=== PATIENT | female | born 1980 | race Caucasian/White ===

== ENCOUNTER → 2023-12-07 15:49 | Outpatient (REF) | payer BC, SELFPAY | LOC: RAD 15:49 | PROVIDERS: ATTENDING PHYSICIAN Physician Assistant Medical | DX: R10.9 Unspecified abdominal pain (principal); Z90.710 Acquired absence of both cervix and uterus; N99.89 Other postprocedural complications and disorders of genitourinary system | CPT/HCPCS: 74177; Q9967 ==

== ENCOUNTER → 2024-03-06 10:57 | Outpatient (REF) | payer BC, SELFPAY | LOC: RAD 10:57 | PROVIDERS: ATTENDING PHYSICIAN Physician Assistant Medical | DX: E01.1 Iodine-deficiency related multinodular (endemic) goiter (principal); R22.1 Localized swelling, mass and lump, neck; E03.9 Hypothyroidism, unspecified; Z85.42 Personal history of malignant neoplasm of other parts of uterus | CPT/HCPCS: 70491; Q9967 ==

== ENCOUNTER 2024-03-06 15:36 | Emergency (ER) | payer BC, SELFPAY ==
[2024-03-06 15:46] VITALS: BP 171/99
[2024-03-06 16:34] LABS: % Basophils 1.4 % (0-2); % Eosinophils 3.1 % (0-6); % Immature Granulocytes 0.3 % (0-0.5); % Monocytes 8.7 % (1.7-9.3); % Neutrophils 50.5 % (42.2-75.2); Absolute Basophils 0.1 10^3/uL (0-0.2); Absolute Eosinophils 0.2 10^3/uL (0-0.7); Absolute Lymphocytes 2.1 10^3/uL (1.2-3.4); Absolute Monocytes 0.5 10^3/uL (0.1-0.6); Hematocrit 36.8 % (37.0-47.0); Hemoglobin 12.1 g/dL (12.0-16.0); Mean Corp Hgb Conc. 32.9 g/dL (33.0-37.0); Mean Corpuscular Hgb 26.4 pg (27.0-31.0); Mean Corpuscular Volume 80.2 fL (81.0-99.0); Mean Platelet Volume 9.5 fL (7.4-10.4); Nucleated Red Blood Cells % 0 %; Platelet Count 304 10^3/uL (130-400); Red Blood Cell Count 4.59 10^6/uL (4.20-5.40); Red Cell Dist. Width 14.8 % (11.5-14.5); White Blood Cell Count 5.9 10^3/uL (4.8-10.8)
[2024-03-06 16:35] LABS: Urine Albumin 1+ (Neg - Trace); Urine Bilirubin Negative (Negative); Urine Character Clear (Clear); Urine Color Pink; Urine Glucose Negative (Negative); Urine Ketone Negative (Negative); Urine Leukocyte Trace (Negative); Urine Nitrite Negative (Negative); Urine Occult Blood 4+ (Negative); Urine Specific Gravity 1.005 (<1.030); Urine Urobilinogen Negative (Neg - 1+)
[2024-03-06 16:52] LABS: Urine Calcium Oxalate Crystals Present; Urine Red Blood Cell >100 /HPF (0-2); Urine Squamous Cell 0-2 /LPF (Few); Urine White Cell 0-2 /HPF (0-5)
[2024-03-06 16:53] LABS: Urine Bacteria Few (Negative)
[2024-03-06 16:58] LABS: ALT (SGPT) 62 U/L (0-35); AST (SGOT) 93 U/L (14-36); Albumin 4.9 g/dl (3.5-5.0); Alkaline Phosphatase 71 U/L (38-126); Blood Urea Nitrogen 11 mg/dl (7-17); Calcium 10.2 mg/dl (8.4-10.2); Carbon Dioxide 25 mmol/L (22-30); Chloride 99 mmol/L (98-107); Glucose 121 mg/dl (70-99); Potassium 3.2 mmol/L (3.5-5.1); Sodium 138 mmol/L (135-145); Total Bilirubin 0.5 mg/dl (0.2-1.3); Total Protein 8.1 g/dl (6.3-8.2); eGFR > 60.00
--- NOTE | 2024-03-06 21:46 | ED.GENMED ---
History of Present Illness
General
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
Time Seen by Provider: 03/06/24 21:46
Travel History
Have you had any contact with someone who has COVID-19?: No
Do you have any symptoms of coronavirus? Fever > 100 degrees, chills, cough, shortness of breath, sore throat, loss of taste or smell, muscle aches, or headache?: No
History of Present Illness
History of Present Illness:
HPI: The patient presents with bleeding. She has a history of uterine cancer (hysterectomy) diagnosed earlier this year at [place] and then has been getting care at [facility] where they ended up doing bilateral oophorectomy. Today, she had a
CAT scan of her neck but then while here developed some lower abdominal/pelvic discomfort and started having bleeding�she could not tell if it was coming from the urine or vagina.
EXAM:
GENERAL: Well appearing in no distress
HEENT: Moist oral mucosa
CARDIOVASCULAR: No murmurs, normal heart rate, regular rhythm, No chest wall tenderness
PULMONARY: No respiratory distress, breath sounds are clear and equal
ABDOMEN: Soft with no peritoneal signs, mild suprapubic tenderness
: With bleach liquor maker in room, bimanual exam shows no blood
NEUROLOGIC: Excellent strength all extremities, no coordination deficits
PSYCHIATRIC: Appropriate mental status, normal insight and judgement
EXTREMITIES: Nontender, no edema, moves all extremities equally
SKIN: No rash, no lesions
TIME OF INITIAL ENCOUNTER: 10 PM
NUMBER AND COMPLEXITY OF PROBLEMS ADDRESSED AT THE ENCOUNTER
� Chronic conditions affecting care: Uterine cancer
� Acute Exacerbation and/or Progression of Chronic Illness: This is an acute problem
� Differential Diagnosis includes: Bleeding from the hysterectomy surgical site, anemia, UTI, hemorrhagic cystitis
AMOUNT AND/OR COMPLEXITY OF DATA TO BE REVIEWED AND ANALYZED
� I performed an independent evaluation of and my interpretation is:
EKG:
CT:
X-rays:
Laboratory Studies: White count normal 5.9, hemoglobin 12.1, potassium low at 3.2, transaminases slightly elevated, UA shows blood
Other:
� Review of other/old records: The patient had a CT 12/07/2023 that showed no acute abnormality but did show a small subcentimeter lesion of the right kidney�I reviewed other CTs over the last couple of years that also showed this
lesion
� Clinical information was obtained by an independent historian: None needed
� Prescriptions/Medications Considered but not given:
� Further testing considered but not performed: Consider imaging tonight however the patient has had recent CT imaging�including 3 total CTs in the past year. I recommend to hold off on CT imaging due to radiation risk and low
likelihood of finding an abnormality that would change release manager at this time.
RISK OF COMPLICATIONS AND/OR MORBIDITY OR MORTALITY OF PATIENT MANAGEMENT
� Social determinants of health affecting care: Lives at home
� Discussion with other providers:
� Escalation of care including admission/observation vs risk of discharge considered: The patient is hemodynamically stable with a normal white blood cell count and hemoglobin mild transaminase elevation of doubtful clinical
significance. I have also given the patient the contact information for local urologist. He is to follow-up with her oncologist as well.
Phy Exam
Physical Exam
Physical Exam:
See HPI
Course
Orders/Labs/Results
Orders:
Orders
03/06/24 16:03
Type+Screen Urgent
Complete Blood Count/With Diff Urgent
Comprehensive Metabolic Panel Urgent
Urine Culture Reflexed from UA [Urinalysis Reflex To Culture] Urgent
Date Specimen was Collected: 03/06/24
Time Specimen was Collected: 15:49
Urine Microscopic Reflex Cult Urgent
03/06/24 22:08
Potassium Chloride Powder [Klor-Con] 40 meq PO NOW STA
Abnormal Lab Results
03/06/24
16:03
Hct 36.8 L %
(37.0-47.0)
MCV 80.2 L fL
(81.0-99.0)
MCH 26.4 L pg
(27.0-31.0)
MCHC 32.9 L g/dL
(33.0-37.0)
RDW 14.8 H %
(11.5-14.5)
Potassium 3.2 L mmol/L
(3.5-5.1)
Glucose 121 H mg/dl
(70-99)
AST 93 H U/L
(14-36)
ALT 62 H U/L
(0-35)
Ur Occult Blood Reflex 4+ A
(Negative)
Leukocyte Esterase Rfl Trace A
(Negative)
Urine RBC >100 A /HPF
(0-2)
Urine Bacteria (Reflex) Few A
(Negative)
Urine Albumin (Reflex) 1+ A
(Neg - Trace)
03/06/24 16:03
03/06/24 16:03
Vital Signs
Initial and Last Documented VS:
Initial Vital Signs
Temp Pulse Resp BP Pulse Ox
98.1 F 81 18 171/99 99
03/06/24 15:46 03/06/24 15:46 03/06/24 15:46 03/06/24 15:46 03/06/24 15:46
Last Documented Vital Signs
Temp Pulse Resp BP Pulse Ox
98.1 F 81 19 180/102 98
03/06/24 15:46 03/06/24 22:15 03/06/24 22:15 03/06/24 22:01 03/06/24 22:01
*Critical Care Note
Total Time (30-74mins, 75-104mins- exclusive of procedures): Not Applicable
ED Attending Note
-
Portions of this chart may have been created with voice recognition software.� Occasional wrong word or��sound alike� substitutions may have occurred due to the inherent limitations of voice recognition software.
Discharge Plan
Departure
Patient Disposition: Home (Routine Discharge)
Date of Disposition: 03/06/24
Time of Disposition: 22:36
Patient with high blood pressure during this ER visit?: Yes
Discharge Problem:
Hematuria
Prescriptions:
No Action
tamsulosin [Flomax] 0.4 mg capsule
0.4 mg PO DAILY Qty: 14 0RF
oxycodone 5 mg tablet
5 mg PO Q8H PRN (Reason: pain) Qty: 10 0RF
ondansetron 4 mg tablet,disintegrating
4 mg PO TIDPRN PRN (Reason: nausea/vomiting) Qty: 20 0RF
Referrals:
Shannon Bhandari PA-C [Family Provider] -
Mark Macario MD [Active] - Follow up in 2-3 days
Activity Restrictions/Additional Instructions:
Your white blood cell count is normal at 5.9, hemoglobin level is normal at 12.1. Eliquis does increase the risk of bleeding. I would say would be reasonable to hold Eliquis for the next day but I would asked that you talk to your doctors at [facility]. The urinalysis here shows a large amount of blood but no clear sign of infection. I have also given you the contact information for a local urologist to follow-up with if symptoms persist.
Interventions
Interventions:
*Risk Screen - Suicide Last Done: 03/06/24 15:46
*General Assessment Last Done: 03/06/24 15:46
*Neglect/Abuse Screening Last Done: 03/06/24 15:46
ED- Fall Risk Assessment Last Done: 03/06/24 21:59
ED-Female Genitourinary Assessment Last Done: 03/06/24 21:59
Discharge Date and Time
Print Language: BURMESE
[2024-03-06 22:01] VITALS: BP 180/102
[2024-03-06] MEDS: KLOR-CON 40 MEQ PO (22:26)
== END 2024-03-06 22:52 | disposition home or self-care (01) ==
LOC: EMR 15:36
PROVIDERS: Student in an Organized Health Care Education/Training Program; EMERGENCY PHYSICIAN Emergency Medicine; FAMILY PHYSICIAN Physician Assistant Medical
DX: R31.9 Hematuria, unspecified (principal); R10.2 Pelvic and perineal pain; R10.30 Lower abdominal pain, unspecified; C55 Malignant neoplasm of uterus, part unspecified; R03.0 Elevated blood-pressure reading, without diagnosis of hypertension
CPT/HCPCS: 99283; 80053; 81003; 81015; 85025; 86850; 86900; 86901

== ENCOUNTER → 2024-07-05 08:32 | Outpatient (REF) | payer BC, SELFPAY | LOC: HWRAD 08:32 | PROVIDERS: ATTENDING PHYSICIAN Physician Assistant Medical; REFERRING PHYSICIAN Obstetrics & Gynecology | DX: K76.0 Fatty (change of) liver, not elsewhere classified (principal) | CPT/HCPCS: 76700 ==

== ENCOUNTER → 2024-09-13 13:16 | Outpatient (REF) | payer BC, SELFPAY | LOC: WDC 13:16 | PROVIDERS: ATTENDING PHYSICIAN Physician Assistant Medical | DX: Z12.31 Encounter for screening mammogram for malignant neoplasm of breast (principal) | CPT/HCPCS: 77063; 77067 ==

== ENCOUNTER 2025-08-21 22:17 | Observation (INO) | payer BC, SELFPAY ==
[2025-08-21 12:33] VITALS: BP 149/101
[2025-08-21] MEDS: TORADOL 30 MG IV (15:19)
[2025-08-21] MEDS: ZOFRAN 4 MG IV (15:20)
[2025-08-21] MEDS: DILAUDID 0.5 MG IV ×4 (15:20→23:06)
[2025-08-21] MEDS: NSS 1000 IV (15:21)
[2025-08-21 15:40] LABS: Hematocrit 40.1 % (37.0-47.0); Hemoglobin 13.5 g/dL (12.0-16.0); Mean Corp Hgb Conc. 33.7 g/dL (33.0-37.0); Mean Corpuscular Volume 82.5 fL (81.0-99.0); Nucleated Red Blood Cells % 0 %; Platelet Count 365 10^3/uL (130-400); Red Cell Dist. Width 14.1 % (11.5-14.5); Urine Character Clear (Clear)
[2025-08-21 15:49] LABS: ALT (SGPT) 69 U/L (0-35); AST (SGOT) 84 U/L (14-36); Albumin 5.4 g/dl (3.5-5.0); Alkaline Phosphatase 85 U/L (38-126); Blood Urea Nitrogen 16 mg/dl (7-17); Calcium 10.5 mg/dl (8.4-10.2); Carbon Dioxide 30 mmol/L (22-30); Chloride 101 mmol/L (98-107); Glucose 91 mg/dl (70-99); Potassium 3.4 mmol/L (3.5-5.1); Sodium 140 mmol/L (135-145); Total Protein 8.7 g/dl (6.3-8.2); eGFR > 60.00
[2025-08-21 15:50] LABS: Urine Red Blood Cell 0-2 /HPF (0-2); Urine White Cell 16-20 /HPF (0-5)
--- NOTE | 2025-08-21 15:55 | ED.GENMED ---
History of Present Illness
General
Chief Complaint: Urinary Symptoms
Source: patient
Exam Limitations: none
Time Seen by Provider: 08/21/25 15:01
Nursing documentation reviewed up to this point in time: agreed with
History of Present Illness
History of Present Illness:
The patient is a pleasant 44-year-old female with a past medical history of a hysterectomy and bilateral oophorectomy who comes in with complaints of 3 days of difficulty passing urine, suprapubic pressure and right flank pain. Patient reports that
the pain has been constant but intermittently becomes severe and stabbing. Patient reports no specific nausea and vomiting but states she just does not feel well. Patient reports a history of kidney stones but states this is worse than ever.
Patient denies fever and chills.
Past History
Past History
ED Past Medical History: Other (Endometriosis)
ED Past Surgical History: Gynecological (Bilateral oophorectomy and hysterectomy) and Other (Benign tumor resected from kidney)
Social History
Tobacco: Former smoker
Alcohol: None
Drug: None
Personal: Other
Living: with family
Employment: Other
Family History
Family History: Other
Review of Systems
Review of Systems
Allergies reviewed?: Yes
All Other Systems: ROS reviewed and negative except as documented in HPI and ROS
Constitutional: Reports no symptoms
EENT: Reports no symptoms
Respiratory: Reports no symptoms
Cardiac: Reports no symptoms
ABD/GI: Reports anorexia
: Reports frequency, flank pain, difficulty voiding and urgency
Musculoskeletal: Reports no symptoms
Skin: Reports no symptoms
Neurological: Reports no symptoms
Endocrine: Reports no symptoms
Hematologic/Lymphatic: Reports no symptoms
Psychiatric: Reports no symptoms
Phy Exam
Physical Exam
Physical Exam:
Physical Exam
General: Patient is tearful and uncomfortable.
Neck: supple. no meningeal signs. normal psoterior pharynx
Heart: s1/s2 regular rate and rhythm, no murmur. equal radial pulses.
Lungs: no acute respiratory distress. clear bilaterally
Abdomen: Normal bowel sounds. Nondistended. No pulsatile mass. Mild suprapubic tenderness. Mild right flank tenderness
Neuro: alert and oriented. no focal neurological deficits
Skin: no rash
Psychiatric: well kept. interactive and cooperative
Extremities: no edema. no calf tenderness. negative homans. good distal pulses
Course
Orders/Labs/Results
Orders:
Orders
08/21/25 15:06
Ketorolac [Toradol] 30 mg IV NOW STA
08/21/25 15:07
0.9% Sodium Chloride 1000 ml [Nss] 1,000 ml IV BOLUS
HYDROmorphone [Dilaudid] 0.5 mg IV NOW STA
Ondansetron Injectable [Zofran] 4 mg IV NOW STA
08/21/25 15:25
CBC/With Diff [Complete Blood Count/With Diff] Urgent
CMP [Comprehensive Metabolic Panel] Urgent
Urinalysis Reflex To Culture Urgent
Date Specimen was Collected: 08/21/25
Time Specimen was Collected: 15:00
Urine Microscopic Reflex Cult Urgent
Urine Culture Urgent
HUGH Source: U
Specimen Description:
Date Specimen was Collected: 08/21/25
Time Specimen was Collected: 15:00
08/21/25 16:12
CT Abd/pel Without Iv Or Oral Urgent
Comment:
Reason For Exam: R flank pain. hx of hysteretomy and oophrectomy
CefTRIAXone [Rocephin] 1,000 mg IV NOW STA
08/21/25 16:54
HYDROmorphone [Dilaudid] 0.5 mg IV NOW STA
08/21/25 18:41
Lorazepam [Ativan] 0.5 mg PO NOW STA
08/21/25 20:02
HYDROmorphone [Dilaudid] 0.5 mg IV NOW STA
Abnormal Lab Results
08/21/25
15:25
Potassium 3.4 L mmol/L
(3.5-5.1)
Calcium 10.5 H mg/dl
(8.4-10.2)
AST 84 H U/L
(14-36)
ALT 69 H U/L
(0-35)
Total Protein 8.7 H g/dl
(6.3-8.2)
Albumin 5.4 H g/dl
(3.5-5.0)
Ur Occult Blood Reflex 1+ A
(Negative)
Urine Nitrite (Reflex) Positive A
(Negative)
Urine Bilirubin 3+ A
(Negative)
Urine Urobilinogen 4+ A
(Neg - 1+)
Urine WBC (Reflex) 16-20 A /HPF
(0-5)
Urine Bacteria (Reflex) Many A
(Negative)
Urine Albumin (Reflex) 3+ A
(Neg - Trace)
08/21/25 15:25
08/21/25 15:25
Vital Signs
Initial and Last Documented VS:
Initial Vital Signs
Temp Pulse Resp BP Pulse Ox
98.2 F 95 16 149/101 97
08/21/25 12:33 08/21/25 12:33 08/21/25 12:33 08/21/25 12:33 08/21/25 12:33
Last Documented Vital Signs
Temp Pulse Resp BP Pulse Ox
98.2 F 95 16 144/91 96
08/21/25 12:33 08/21/25 12:33 08/21/25 12:33 08/21/25 18:29 08/21/25 18:30
MDM/Problems Addressed
Differential Diagnosis Includes:
Acute right-sided pyelonephritis, acute renal colic, renal colic with UTI
MDM/Problems Addressed:
Patient presents with acute urgency, frequency and right flank pain
Chronic conditions affecting care:
Patient has chronic history of kidney stones
Acute Exacerbation and/or Progression of Chronic Illness:
Patient may have acute exacerbation of pain due to chronic kidney stone dropping into ureter
*Radiology
Radiology exam reviewed: radiology read reviewed
*Pulse Oximetry
SaO2: 97
Oxygen Mode of Delivery: Room air
Patient hypoxic: no
*Major Appliance Assembly Supervisor Interpretation
Rate: normal
Interpretation: normal
Rhythm: sinus
*Critical Care Note
Total Time (30-74mins, 75-104mins- exclusive of procedures): Not Applicable
Data Reviewed
Review of Other/Old Records Reveals: Radiology Studies (CT abdomen pelvis reviewed from 2023 which shows bilateral nonobstructing intrarenal calculi)
Update Note
Update Note:
CT report showed no sign of hydro. However, patient clinically appears to have renal colic. Patient has been given multiple doses of IV pain medications and states that she is still in pain and is very hesitant to go home due to the severe pain.
ED Attending Note
-
Portions of this chart may have been created with voice recognition software.� Occasional wrong word or��sound alike� substitutions may have occurred due to the inherent limitations of voice recognition software.
Discharge Plan
Departure
Patient Disposition: Admit
Date of Disposition: 08/21/25
Time of Disposition: 21:16
Admit to: Med/Surg
Presentation/result/management discussed w/ accepting MD/DO: Hospitalist
Patient with high blood pressure during this ER visit?: Yes
Condition: Good
Covid-19: Not Applicable
Discharge Problem:
UTI (urinary tract infection), Intractable right flank pain
Prescriptions:
No Action
tamsulosin [Flomax] 0.4 mg capsule
0.4 mg PO DAILY Qty: 14 0RF
oxycodone 5 mg tablet
5 mg PO Q8H PRN (Reason: pain) Qty: 10 0RF
ondansetron 4 mg tablet,disintegrating
4 mg PO TIDPRN PRN (Reason: nausea/vomiting) Qty: 20 0RF
Referrals:
Shannon Bhandari PA-C [Family Provider, Family Practice]
Interventions
Interventions:
*Risk Screen - Suicide Last Done: 08/21/25 12:34
*General Assessment Last Done: 08/21/25 16:33
*Neglect/Abuse Screening Last Done: 08/21/25 12:34
*ED- Fall Risk Assessment Last Done: 08/21/25 16:33
*ED COVID-19 Vaccine History Last Done: 08/21/25 16:33
*ED Influenza Vaccine History Last Done: 08/21/25 16:33
ED-Female Genitourinary Assessment Last Done: 08/21/25 16:33
Discharge Date and Time
Print Language: TURKMEN
[2025-08-21] MEDS: ROCEPHIN 1000 MG IV (17:05)
[2025-08-21 18:29] VITALS: BP 144/91
[2025-08-21] MEDS: ATIVAN 0.5 MG PO (18:44)
[2025-08-21 19:00] VITALS: BP 129/86
--- NOTE | 2025-08-21 22:12 | HPS.HSE ---
Family Physician
-
Family Physician: Shannon Bhandari
Chief Complaint
-
Pelvic pain, Urinary symptoms
History of Present Illness
Patient is a 44y F with PMH significant for hypertension, hypothyroidism and prior cervical cancer who presents to ED complaining of pelvic pain and urinary symptoms x 3 days. Patient states that she started with low abdominal pelvic pain,
urinary frequency / urgency and dysuria. She reports radiation of the pain into the RLQ and R flank areas. She has felt nauseated, but no emesis. Today her pain was so severe that she became diaphoretic and 'almost passed out'. She presented to
the ED for further evaluation and treatment. No fevers / chills. She does have prior h/o kidney stones.
Medical History
Past Medical History
Past Medical History: Reports Other
Additional Past Medical History:
Cervical Cancer
Hypertension
Hypothyroidism
Anxiety / Depression
Nephrolithiasis
Past Surgical History: Reports Other
Additional Past Surgical History:
Hysterectomy
Lithotripsy
Social History
Tobacco: Former Smoker (Quit smoking 14 y ago.)
Alcohol: None
Drug: None
Family History
Family History: Not pertinent
Allergies / Home Medications
Allergies reflects when Allergies were last updated in [facility].
Home Medications with original date entered in [facility]
Allergy/Medication List:
Allergies
Allergy/AdvReac Type Severity Reaction Status Date / Time
No Known Allergies Allergy Verified 03/06/24 15:46
Home Medications
amlodipine 5 mg tablet 5 mg PO DAILY 08/21/25
benazepril 20 mg tablet 20 mg PO DAILY 08/21/25
buspirone 10 mg tablet 10 mg PO BID 08/21/25
ezetimibe 10 mg tablet 10 mg PO DAILY 08/21/25
letrozole 2.5 mg tablet 2.5 mg PO HS 08/21/25
levothyroxine 50 mcg tablet 50 mcg PO DAILY 08/21/25
venlafaxine 75 mg capsule,extended release 24 hr 75 mg PO DAILY 08/21/25
Review of Systems
-
History Source: Patient
A 12 point ROS was completed and negative except as noted: Yes
Constitutional: Reports Fatigue; Denies Fever or Chills
Respiratory: Denies Cough or Trouble Breathing
Cardiac: Denies Chest Pain or Palpitations
Abdomen/GI: Reports Abdominal Pain, Nausea and Anorexia; Denies Vomiting, Diarrhea, Bloody Stools or Black Stools
: Reports Dysuria, Frequency, Flank Pain and Urgency; Denies Bleeding
Musculoskeletal: Denies Joint Pain or Edema
Neurological: Denies Dizzy or Headache
Psych: Denies Depression or Anxiety
Physical Exam
Vital Signs
Vital Signs
Temp Pulse Resp BP Pulse Ox
98.2 F 95 16 129/86 96
08/21/25 12:33 08/21/25 12:33 08/21/25 12:33 08/21/25 19:00 08/21/25 18:30
Physical Exam
General: Other (44y F in no acute distress.)
HEENT: Moist mucous membranes and PERRLA
Respiratory: Clear; No Wheezes, Rales or Rhonchi
Cardiac: S1/S2 and Regular Rhythm; No Murmur
GI: Soft, Non Distended and Normal Bowel Sounds
Genito-urinary: Other (Pos tenderness in suprapubic area. Pos R CVAT.)
Musculoskeletal: No Clubbing, No Cyanosis and No Edema
Neuro: AO x 3
Laboratory Results
-
08/21/25 15:25
08/21/25 15:25
Laboratory Results
Total Bilirubin 0.8 mg/dl (0.2-1.3) 08/21/25 15:25
AST 84 U/L (14-36) H 08/21/25 15:25
ALT 69 U/L (0-35) H 08/21/25 15:25
Alkaline Phosphatase 85 U/L (38-126) 08/21/25 15:25
Impression/Plan
-
A/P: Patient is a 44y F with PMH significant for hypertension, hypothyroidism and prior kidney stones who presents to ED complaining of 3 days of pelvic pain and urinary symptoms.
Cystitis / UTI
- Observe overnight for further evaluation and treatment.
- Majority of symptoms seem attributable to cystitis / UTI primarily.
- Some extension into the R flank - ? developing / ascending infection.
- CT done in the ED with stones within the kidneys - but no ureteral / obstructing stones are appreciated.
- IV ceftriaxone pending culture data.
- IVFs, pain control, etc.
- Follow for improvement in symptoms with treatment of infection.
- Tamsulosin and strain urine to see if any stones obtained.
- Consider Urology evaluation if pain does not improve with UTI therapy - but no evidence at present for surgical need.
Benign Hypertension
- Stable. Continue OP medication with holding parameters.
Hypothyroidism
- Stable. Continue T4 replacement.
Cervical Cancer
- Continue letrozole.
Anxiety / Depression
- Continue usual psychotropic med regimen.
DVT Prophylaxis: SCDs
Code Status: Full
[2025-08-21 22:37] VITALS: BMI 28.4
[2025-08-21 22:40] VITALS: BP 161/105
[2025-08-21 22:50] VITALS: BP 150/106
[2025-08-21] MEDS: NSS with KCL 20 MEQ 1000 IV (22:54)
--- NOTE | 2025-08-21 23:00 | PTCARENOTE ---
Pt arrived to unit from ED via stretcher. Ambulated to bed. Pt with c/o chest pain. JB Cerna notified. EKG ordered and STAT troponin. Pt with elevated BP. JB Mosquedahosabina at bedside to assess patient. One time dose of hydralazine
ordered. One time dose of buspirone ordered for anxiety. Pt with no further complaints of chest pain. Plan of care ongoing.
[2025-08-21] MEDS: FEMARA 2.5 MG PO (23:03)
[2025-08-21] MEDS: APRESOLINE 5 MG IV (23:28)
[2025-08-21] MEDS: BUSPAR 10 MG PO (23:28)
[2025-08-21 23:47] LABS: Troponin I < 0.012 ng/ml
[2025-08-22] MEDS: DILAUDID 1 MG IV (01:00)
[2025-08-22] MEDS: TORADOL 30 MG IV (01:01)
--- NOTE | 2025-08-22 03:27 | DOWNTIME ---
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 Downtime documentation of patient's care, including medication administrations, has been reconciled in the electronic record per guidelines. Refer to the
patient's paper chart under the miscellaneous tab to see printed paper medication records and downtime forms.
[2025-08-22 04:00] VITALS: BP 126/81
[2025-08-22] MEDS: DILAUDID 0.5 MG IV ×2 (04:27→08:27)
[2025-08-22] MEDS: SYNTHROID 50 MCG PO (06:10)
[2025-08-22] MEDS: TYLENOL 650 MG PO ×2 (06:22→21:24)
[2025-08-22 06:42] LABS: Hematocrit 35.0 % (37.0-47.0); Hemoglobin 11.7 g/dL (12.0-16.0); Mean Corp Hgb Conc. 33.4 g/dL (33.0-37.0); Mean Corpuscular Volume 84.5 fL (81.0-99.0); Platelet Count 310 10^3/uL (130-400); Red Cell Dist. Width 14.5 % (11.5-14.5)
[2025-08-22 06:59] LABS: Blood Urea Nitrogen 13 mg/dl (7-17); Calcium 9.5 mg/dl (8.4-10.2); Carbon Dioxide 29 mmol/L (22-30); Chloride 105 mmol/L (98-107); Estimated Creatinine Clearance 107 ml/min; Glucose 94 mg/dl (70-99); Magnesium 2.0 mg/dl (1.6-2.3); Potassium 3.6 mmol/L (3.5-5.1); Sodium 140 mmol/L (135-145); eGFR > 60.00
[2025-08-22 07:30] VITALS: BP 138/83
[2025-08-22] MEDS: NSS with KCL 20 MEQ 1000 IV ×2 (08:24→18:03)
[2025-08-22] MEDS: NORVASC 5 MG PO (08:25)
[2025-08-22] MEDS: FLOMAX 0.4 MG PO (08:26)
[2025-08-22] MEDS: BUSPAR 10 MG PO ×2 (08:26→21:14)
[2025-08-22] MEDS: EFFEXOR XR 75 MG PO (08:26)
[2025-08-22] MEDS: ZOFRAN 4 MG IV (10:22)
[2025-08-22 12:49] LABS: ALT (SGPT) 62 U/L (0-35); AST (SGOT) 76 U/L (14-36); Albumin 4.5 g/dl (3.5-5.0); Alkaline Phosphatase 61 U/L (38-126); Total Protein 7.1 g/dl (6.3-8.2)
[2025-08-22] MEDS: TORADOL 15 MG IV (13:22)
--- NOTE | 2025-08-22 13:31 | W.PN.HOSP.TC ---
Today's Communication/Plan
-
Monitor vital signs and see plan
Continue to follow urine culture
Continue ceftriaxone
Pain control
Urology evaluation if symptoms do not improve
Assessment / Plan
Assessment / Plan
General: Other (44y F in no acute distress.)
HEENT: Moist mucous membranes and PERRLA
Respiratory: Clear; No Wheezes, Rales or Rhonchi
Cardiac: S1/S2 and Regular Rhythm; No Murmur
GI: Soft, Non Distended and Normal Bowel Sounds
Genito-urinary: Other (Pos tenderness in suprapubic area. Pos R CVAT.)
Musculoskeletal: No Edema
Neuro: AO x 3
Cystitis / UTI
- Majority of symptoms seem attributable to cystitis / UTI primarily.
- Some extension into the R flank - ? developing / ascending infection.
- CT done in the ED with stones within the kidneys - but no ureteral / obstructing stones are appreciated.
- IV ceftriaxone pending culture data.
- IVFs, pain control, etc. urology evaluation if symptoms do not improve
- Follow for improvement in symptoms with treatment of infection.
- Tamsulosin and strain urine to see if any stones obtained.
Benign Hypertension
- Stable. Continue OP medication with holding parameters.
Hypothyroidism
- Stable. Continue T4 replacement.
Elevated LFTs likely secondary to fatty liver disease
Continue to monitor
Cervical Cancer
- Continue letrozole.
Anxiety / Depression
- Continue usual psychotropic med regimen.
DVT Prophylaxis: SCDs
Code Status: Full
Anticipated Discharge: 24 - 48 hours
Subjective/Interval History
-
Date of Service: August 22, 2025
does have pain
Objective Data
-
Labs:
Laboratory Results
08/22/25 08/22/25 08/22/25
06:10 06:11 10:28
WBC 5.3
Hgb 11.7 L
Hct 35.0 L
Plt Count 310
Sodium 140
Potassium 3.6
Chloride 105
Carbon Dioxide 29
BUN 13
Creatinine 0.7
Glucose 94
Calcium 9.5
Total Bilirubin 0.8 Cancelled
AST 76 H Cancelled
ALT 62 H Cancelled
Alkaline Phosphatase 61 Cancelled
Vital Signs:
Vital Signs
Temp Pulse Resp BP Pulse Ox
98.4 F 88 16 138/83 97
08/22/25 07:30 08/22/25 07:30 08/22/25 07:30 08/22/25 07:30 08/22/25 07:30
I&O
08/21/25 08/22/25 08/23/25
06:59 06:59 06:59
Output Total 50 / 50
Balance -50 / -50
--- NOTE | 2025-08-22 13:42 | CM ---
Initial assessment completed with patient who was laying in bed with eye closed throughout assessment. She is not feeling well. Patient lives with her in a 2 story home plus basement with B/B on 2nd and 1/2 bath on 1st, no steps to enter.
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 No DME. No in-home services. No HC-POA. No VA benefits. No psychiatric hospitalizations. PCP is [facility] with Shannon MELISSA. Pharmacy is [facility] in [place].
Discharge POC: Anticipate home with no needs.
[2025-08-22] MEDS: COMPAZINE 10 MG IV (13:47)
[2025-08-22 15:15] VITALS: BP 119/80
[2025-08-22] MEDS: ROCEPHIN 1000 MG IV (16:30)
[2025-08-22] MEDS: STERILE WATER FOR INJECTION 10 ML IV (16:32)
--- NOTE | 2025-08-22 17:35 | CONS.URO ---
Consultation
-
Date/Time Consultation Performed: 08/22
Performing Provider: Peffer
Reason for Consultation: Flank pain
Medical History
History of Present Illness
44F prior history of kidney stones
Hx of renal mass s/p treatment with Dr. Miller at [facility] with benign pathology
1 month of pain and urinary symptoms with prior neg culture
Admitted with acute UTI
She had significant bladder pain radiating to R flank
CT scan showed only some nonobstructing stones b/l
Initially flank pain was severe but has improved considerably throughout the day and now is minimal
Past Medical History
Past Medical History: Other (Renal mass, mason apprentice malignancy)
Past Surgical History: Gynocological and Urological
Family History
Family History: Reviewed & Not Pertinent
Allergies/Home Medications
Allergies
Allergy/AdvReac Type Severity Reaction Status Date / Time
No Known Allergies Allergy Verified 03/06/24 15:46
Home Medications
�Medication �Instructions �Recorded �Confirmed �Type
amlodipine 5 mg tablet 5 mg PO DAILY 08/21/25 08/21/25 History
benazepril 20 mg tablet 20 mg PO DAILY 08/21/25 08/21/25 History
buspirone 10 mg tablet 10 mg PO BID 08/21/25 08/21/25 History
ezetimibe 10 mg tablet 10 mg PO DAILY 08/21/25 08/21/25 History
letrozole 2.5 mg tablet 2.5 mg PO HS 08/21/25 08/21/25 History
levothyroxine 50 mcg tablet 50 mcg PO DAILY 08/21/25 08/21/25 History
venlafaxine 75 mg capsule,extended 75 mg PO DAILY 08/21/25 08/21/25 History
release 24 hr
Physical Exam
Vital Signs
Vital Signs
Temp Pulse Resp BP Pulse Ox
98.2 F 99 16 119/80 93
08/22/25 15:15 08/22/25 15:15 08/22/25 15:15 08/22/25 15:15 08/22/25 15:15
Lab / Testing Results
Laboratory Results
08/22/25 06:10
08/22/25 06:11
Physical Exam
General: Well Developed, Well Nourished and No Apparent Distress
Respiratory: Clear and Non Labored Respirations
Genito-urinary: No Costovertebral Tend
Neuro: AO x 3
Psych: Calm and Intact Judgement
Assessment / Plan
-
44F with acute UTI and R flank pain
Prior hx of benign renal mass managed at [facility]
- Initially severe R flank pain now significantly improved and near resolved
- Pain likely due to ascending UTI
- No evidence for obstruction or passing stone
- Stop tamsulosin
- Continue abx course per cultures
- NSAID PRN pain
Outpatient follow up to discuss kidney stone management
[2025-08-22] MEDS: FEMARA 2.5 MG PO (21:14)
[2025-08-22] MEDS: XANAX 0.5 MG PO (21:16)
[2025-08-22 23:00] VITALS: BP 126/79
[2025-08-23] MEDS: NSS with KCL 20 MEQ IV (00:12)
[2025-08-23] MEDS: SYNTHROID 50 MCG PO (06:00)
[2025-08-23] MEDS: TYLENOL 650 MG PO (06:38)
[2025-08-23 06:42] LABS: Hematocrit 34.5 % (37.0-47.0); Hemoglobin 11.6 g/dL (12.0-16.0); Mean Corp Hgb Conc. 33.6 g/dL (33.0-37.0); Mean Corpuscular Volume 82.9 fL (81.0-99.0); Nucleated Red Blood Cells % 0 %; Platelet Count 293 10^3/uL (130-400); Red Cell Dist. Width 13.7 % (11.5-14.5)
[2025-08-23 06:57] LABS: ALT (SGPT) 57 U/L (0-35); AST (SGOT) 60 U/L (14-36); Albumin 4.5 g/dl (3.5-5.0); Alkaline Phosphatase 62 U/L (38-126); Blood Urea Nitrogen 11 mg/dl (7-17); Calcium 9.7 mg/dl (8.4-10.2); Carbon Dioxide 30 mmol/L (22-30); Chloride 105 mmol/L (98-107); Estimated Creatinine Clearance 107 ml/min; Glucose 101 mg/dl (70-99); Potassium 3.4 mmol/L (3.5-5.1); Sodium 138 mmol/L (135-145); Total Protein 7.2 g/dl (6.3-8.2); eGFR > 60.00
[2025-08-23 07:31] VITALS: BP 128/80
[2025-08-23] MEDS: NORVASC 5 MG PO (07:55)
[2025-08-23] MEDS: EFFEXOR XR 75 MG PO (07:55)
[2025-08-23] MEDS: BUSPAR 10 MG PO (07:55)
[2025-08-23] MEDS: XANAX 0.5 MG PO ×3 (08:40→22:08)
[2025-08-23] MEDS: KCL 20 MEQ PO (09:03)
[2025-08-23] MEDS: ZOFRAN 4 MG IV (09:04)
[2025-08-23] MEDS: DILAUDID 0.5 MG IV ×3 (09:04→20:02)
--- NOTE | 2025-08-23 09:50 | CM ---
Patient seen at bedside
cont on IV antbiotic
PLAN: Home, no needs when stable
to transport
--- NOTE | 2025-08-23 11:50 | W.PN.HOSP.TC ---
Today's Communication/Plan
-
Monitor vital signs see plan
Follow urine culture
Pain control
Replete potassium
Continue with antibiotic
Assessment / Plan
Assessment / Plan
General: Other (44y F in no acute distress.)
HEENT: Moist mucous membranes and PERRLA
Respiratory: Clear; No Wheezes, Rales or Rhonchi
Cardiac: S1/S2 and Regular Rhythm; No Murmur
GI: Soft, Non Distended and Normal Bowel Sounds
Genito-urinary: Other (Pos tenderness in suprapubic area. Pos R CVAT.)
Musculoskeletal: No Edema
Neuro: AO x 3
Cystitis / UTI
- Majority of symptoms seem attributable to cystitis / UTI primarily.
- Some extension into the R flank - ? developing / ascending infection.
- CT done in the ED with stones within the kidneys - but no ureteral / obstructing stones are appreciated.
- IV ceftriaxone pending culture data. Growing gram-negative bacilli
- IVFs, pain control, etc. urology evaluation if symptoms do not improve
- Follow for improvement in symptoms with treatment of infection.
- Tamsulosin and strain urine to see if any stones obtained.
Benign Hypertension
- Stable. Continue OP medication with holding parameters.
Hypokalemia
Replete
Hypothyroidism
- Stable. Continue T4 replacement.
Elevated LFTs likely secondary to fatty liver disease
Continue to monitor
Cervical Cancer
- Continue letrozole.
Anxiety / Depression
- Continue usual psychotropic med regimen.
DVT Prophylaxis: SCDs
Code Status: Full
Anticipated Discharge: Within 24 hours
Subjective/Interval History
-
Date of Service: August 23, 2025
Still has some pain
Objective Data
-
Labs:
Laboratory Results
08/23/25
06:13
WBC 4.8
Hgb 11.6 L
Hct 34.5 L
Plt Count 293
Sodium 138
Potassium 3.4 L
Chloride 105
Carbon Dioxide 30
BUN 11
Creatinine 0.7
Glucose 101 H
Calcium 9.7
Total Bilirubin 0.7
AST 60 H
ALT 57 H
Alkaline Phosphatase 62
Vital Signs:
Vital Signs
Temp Pulse Resp BP Pulse Ox
98.4 F 112 16 128/80 94
08/23/25 07:31 08/23/25 07:55 08/23/25 07:31 08/23/25 07:55 08/23/25 07:31
I&O
08/22/25 08/23/25 08/24/25
06:59 06:59 06:59
Intake Total 360 / 360 381.7 / 381.7
Output Total 50 / 50 700 / 700
Balance -50 / -50 -340 / -340 381.7 / 381.7
[2025-08-23 15:45] VITALS: BP 137/87
[2025-08-23] MEDS: STERILE WATER FOR INJECTION 10 ML IV (16:05)
[2025-08-23] MEDS: ROCEPHIN 1000 MG IV (16:05)
[2025-08-23] MEDS: BUSPAR 7.5 MG PO (20:01)
[2025-08-23] MEDS: ZETIA 10 MG PO (22:08)
[2025-08-23] MEDS: FEMARA 2.5 MG PO (22:08)
[2025-08-23 23:38] VITALS: BP 138/86
[2025-08-24] MEDS: DILAUDID 0.5 MG IV ×5 (00:03→16:15)
[2025-08-24] MEDS: XANAX 0.5 MG PO ×3 (04:11→16:14)
[2025-08-24] MEDS: SYNTHROID 50 MCG PO (05:14)
[2025-08-24 07:07] LABS: Hematocrit 35.7 % (37.0-47.0); Hemoglobin 12.0 g/dL (12.0-16.0); Mean Corp Hgb Conc. 33.6 g/dL (33.0-37.0); Mean Corpuscular Volume 84.6 fL (81.0-99.0); Nucleated Red Blood Cells % 0 %; Platelet Count 302 10^3/uL (130-400); Red Cell Dist. Width 13.7 % (11.5-14.5)
[2025-08-24 07:36] VITALS: BP 141/90
[2025-08-24 07:49] LABS: ALT (SGPT) 53 U/L (0-35); AST (SGOT) 57 U/L (14-36); Albumin 4.6 g/dl (3.5-5.0); Alkaline Phosphatase 66 U/L (38-126); Blood Urea Nitrogen 8 mg/dl (7-17); Calcium 9.4 mg/dl (8.4-10.2); Carbon Dioxide 31 mmol/L (22-30); Chloride 101 mmol/L (98-107); Estimated Creatinine Clearance 107 ml/min; Glucose 96 mg/dl (70-99); Potassium 3.3 mmol/L (3.5-5.1); Sodium 140 mmol/L (135-145); Total Protein 7.2 g/dl (6.3-8.2); eGFR > 60.00
[2025-08-24] MEDS: BUSPAR 7.5 MG PO (08:07)
[2025-08-24] MEDS: EFFEXOR XR 75 MG PO (08:07)
[2025-08-24] MEDS: NORVASC 5 MG PO (08:08)
[2025-08-24] MEDS: KCL 40 MEQ PO (10:03)
[2025-08-24] MEDS: OMNICEF 300 MG PO (10:05)
--- NOTE | 2025-08-24 11:08 | W.PN.HOSP.TC ---
Today's Communication/Plan
-
Monitor vital signs and see plan
Switch antibiotics to oral cefdinir
Pain control
Discharge today
Time of discharge 37 minutes
Assessment / Plan
Assessment / Plan
General: Other (44y F in no acute distress.)
HEENT: Moist mucous membranes and PERRLA
Respiratory: Clear; No Wheezes, Rales or Rhonchi
Cardiac: S1/S2 and Regular Rhythm; No Murmur
GI: Soft, Non Distended and Normal Bowel Sounds
Genito-urinary: Mild suprapubic tenderness
Musculoskeletal: No Edema
Neuro: AO x 3
Cystitis / UTI
- Majority of symptoms seem attributable to cystitis / UTI primarily.
- CT done in the ED with stones within the kidneys - but no ureteral / obstructing stones are appreciated.
DC ceftriaxone, urine culture with E. coli is sensitive to third-generation cephalosporin. Transition to cefdinir
Discussed with urology, pain likely secondary to cystitis. Urology follow-up outpatient
- Follow for improvement in symptoms with treatment of infection.
- Tamsulosin and strain urine to see if any stones obtained.
cw pyridium
Benign Hypertension
- Stable. Continue OP medication with holding parameters.
Hypokalemia
Replete
Hypothyroidism
- Stable. Continue T4 replacement.
Elevated LFTs likely secondary to fatty liver disease
Continue to monitor
Cervical Cancer
- Continue letrozole.
Anxiety / Depression
- Continue usual psychotropic med regimen.
DVT Prophylaxis: SCDs
Code Status: Full
Anticipated Discharge: Today
Subjective/Interval History
-
Date of Service: August 24, 2025
Still some pain but much improved from before
Objective Data
-
Labs:
Laboratory Results
08/24/25
06:26
WBC 5.0
Hgb 12.0
Hct 35.7 L
Plt Count 302
Sodium 140
Potassium 3.3 L
Chloride 101
Carbon Dioxide 31 H
BUN 8
Creatinine 0.7
Glucose 96
Calcium 9.4
Total Bilirubin 0.4
AST 57 H
ALT 53 H
Alkaline Phosphatase 66
Vital Signs:
Vital Signs
Temp Pulse Resp BP Pulse Ox
97.5 F 73 16 141/90 96
08/24/25 07:36 08/24/25 07:36 08/24/25 07:36 08/24/25 07:36 08/24/25 07:36
I&O
08/23/25 08/24/25 08/25/25
06:59 06:59 06:59
Intake Total 360 / 360 1481.7 / 1481.7
Output Total 700 / 700
Balance -340 / -340 1481.7 / 1481.7
--- NOTE | 2025-08-24 11:23 | W.DCSUMMARY ---
Discharge Summary
Discharge Data
Date of Admission: 08/21/25
Date of Discharge: 08/24/25
-
Pending Results: No
Hospital Course
44-year-old female with past medical history of hypertension, hypothyroidism, fatty liver disease, cervical cancer, anxiety, depression came to the hospital with abdominal pain known to have cystitis and urinary tract infection. Patient urine
culture grew E. coli. Initially patient was on IV antibiotic which were later transitioned to p.o. cefdinir on discharge. On CT scan patient also had nonobstructing kidney stone. Urology instructed patient to follow-up with them outpatient. Once
patient's symptoms continue to improve, she was then discharged home with instructions to follow-up with all her physicians outpatient.
Discharge Plan
-
Patient Disposition: Home (Routine Discharge)
Discharge Diagnosis/Procedures: Cystitis/E. coli urinary tract infection
Nonobstructing kidney stone
Condition: Fair
Diet: As tolerated
Activity: As tolerated
Driving Restrictions: As prior to admission
Bathing Restrictions: None
Activity Restrictions/Additional Instructions:
Please schedule a follow up appointment with Dr. Pritchett in the next 1-2 months to discuss kidney stone prevention and surveillance
[facility]: [phone]
Referrals:
Shannon Bhandari PA-C [Family Provider, Family Practice] - in less than 1 week
Jean Pritchett MD [Active, Urology]
Prescriptions:
New
acetaminophen 325 mg Tablet
650 mg PO Q4HPRN PRN (Reason: Mild Pain / Temp > 101) Qty: 0 0RF
phenazopyridine 100 mg Tablet
100 mg PO TIDPRN PRN (Reason: dysuria) Qty: 21 0RF
cefdinir 300 mg Capsule
300 mg PO Q12 Qty: 14 0RF
oxycodone 5 mg capsule
5 mg PO Q6H PRN (Reason: Pain) Qty: 10 0RF
Probiotic 10 billion cell capsule
10,000 mmu cells PO DAILY Qty: 10 0RF
Continued
letrozole 2.5 mg tablet
2.5 mg PO HS
venlafaxine 75 mg capsule,extended release 24hr
75 mg PO DAILY
amlodipine 5 mg tablet
5 mg PO DAILY
levothyroxine 50 mcg tablet
50 mcg PO DAILY@0600
benazepril 20 mg tablet
20 mg PO DAILY
ezetimibe 10 mg tablet
10 mg PO HS
buspirone 7.5 mg tablet
7.5 mg PO BID
Discharge Orders:
Discharge Patient (As Directed); Ordered 08/24/25
Ordered By: Shamir Vasquez
Discharge Date and Time
Discharge Date/Time: 08/24/25 18:21
Print Language: GEORGIAN
--- NOTE | 2025-08-24 12:48 | CM ---
Patient seen at bedside
discharge today
PLAN: Home, no needs
transport self
[2025-08-24 15:33] VITALS: BP 136/90
== END 2025-08-24 18:21 | disposition home or self-care (01) ==
LOC: 3 WEST ACU 22:17
PROVIDERS: Emergency Medicine; Nurse Practitioner Family; ADMITTING PHYSICIAN Hospitalist; ATTENDING PHYSICIAN Internal Medicine; EMERGENCY PHYSICIAN Emergency Medicine; FAMILY PHYSICIAN Physician Assistant Medical; OTHER PHYSICIAN Urology
DX: N30.90 Cystitis, unspecified without hematuria (principal); R33.9 Retention of urine, unspecified; R10.A1 Flank pain, right side; N20.0 Calculus of kidney; C53.9 Malignant neoplasm of cervix uteri, unspecified; I10 Essential (primary) hypertension; E03.9 Hypothyroidism, unspecified; R55 Syncope and collapse; R61 Generalized hyperhidrosis; F32.A Depression, unspecified; F41.9 Anxiety disorder, unspecified; R39.89 Other symptoms and signs involving the genitourinary system; K76.0 Fatty (change of) liver, not elsewhere classified; R16.2 Hepatomegaly with splenomegaly, not elsewhere classified; I49.8 Other specified cardiac arrhythmias; R79.89 Other specified abnormal findings of blood chemistry; E87.6 Hypokalemia; B96.20 Unspecified Escherichia coli [E. coli] as the cause of diseases classified elsewhere; Z79.899 Other long term (current) drug therapy; Z90.710 Acquired absence of both cervix and uterus; Z90.722 Acquired absence of ovaries, bilateral; Z87.442 Personal history of urinary calculi; Z87.891 Personal history of nicotine dependence; Z79.811 Long term (current) use of aromatase inhibitors; Z87.440 Personal history of urinary (tract) infections; Z86.018 Personal history of other benign neoplasm; Z90.721 Acquired absence of ovaries, unilateral
CPT/HCPCS: 74176; 80048; 80053; 80076; 81003; 81015; 83735; 84484; 85025; 85027; 87077; 87086; 87186; 93005; 96361; 96374; 96375; 96376; 99284; G0378